=== PATIENT | male | born 1995 | race African-American/Black ===

== ENCOUNTER 2021-12-05 05:39 | Emergency (ER) | payer OTHER ==
[2021-12-05] MEDS ORDERED: ONDANSETRON *ODT* 4 MG TABLET SL ONE (06:07)
[2021-12-05] MEDS ORDERED: ONDANSETRON *ODT* 4 MG TABLET ONE (06:08)
[2021-12-05 06:13] VITALS: BP 105/68; PULSE 95; TEMP 97.7; BMI 31.5
[2021-12-05 07:39] LABS: ALBUMIN 4.2 g/dl (3.4-5.0); CALCIUM 9.3 mg/dL (8.5-10.1)
[2021-12-05 07:42] LABS: CREATININE 0.9 mg/dL (0.55-1.3)
[2021-12-05 07:44] LABS: BILIRUBIN,TOTAL 0.7 mg/dL (0.2-1); TOT PROT 7.1 g/dl (6.4-8.2)
[2021-12-05] MEDS ORDERED: ONDANSETRON 4 MG TABLET PO ONE (08:01)
[2021-12-05] MEDS ORDERED: ONDANSETRON 4 MG/2 ML VIAL ONE (08:22)
[2021-12-05] MEDS ORDERED: SODIUM CHLORIDE 0.9% 500 ML INFUS.BAG IV ONE (08:30)
[2021-12-05 08:45] LABS: HEMATOCRIT 48.6 % (35.4-49); HEMOGLOBIN 15.6 GM/dL (11.7-16.9); MCH 29.6 pg (25.7-33.7); MCHC 32.2 g/dl (32.0-35.9); MEAN CELL VOLUME 92.1 fl (80-96); MEAN PLT VOLUME 8.4 fl (7.5-11.1); PLATELET COUNT 215 10^3/uL (134-434); RBC 5.28 M/mm3 (4.00-5.60); RDW 13.9 % (11.9-15.9); WHITE BLOOD COUNT 8.6 K/mm3 (4.0-10.0)
[2021-12-05] MEDS ORDERED: SODIUM CHLORIDE 1,000 ML IV STA (09:17)
[2021-12-05 12:51] LABS: PLATELET ESTIMATE ADEQUATE
== END 2021-12-05 09:46 | disposition home or self-care (01) ==
LOC: JER 05:39
PROC: 3E0337Z Introduction of Electrolytic and Water Balance Substance into Peripheral Vein, Percutaneous Approach (ICD-10-PCS; principal; 2021-12-05)
DX: R11.2 Nausea with vomiting, unspecified (principal)
CPT/HCPCS: 36415; 80053; 83690; 85025; 99284-25; C9803; Q0162; U0003; U0005

== ENCOUNTER 2021-12-08 06:40 | Emergency (ER) | payer OTHER ==
[2021-12-08 07:32] VITALS: BP 136/84; PULSE 62; TEMP 98.4; BMI 29.7
[2021-12-08] MEDS ORDERED: FAMOTIDINE 20 MG TABLET PO ONE (08:55)
[2021-12-08] MEDS ORDERED: MAG HYDROX/AL HYDROX/SIMETH -MYLANTA- ORAL SUSPENSION PO ONE (08:56)
[2021-12-08] MEDS ORDERED: MAG HYDROX/AL HYDROX/SIMETH 30 ML UNIT-DOSE CUP ONE (09:09)
[2021-12-08] MEDS ORDERED: FAMOTIDINE 20 MG TABLET ONE (09:09)
== END 2021-12-08 10:05 | disposition home or self-care (01) ==
LOC: JER 06:40
DX: R10.13 Epigastric pain (principal); F12.90 Cannabis use, unspecified, uncomplicated
CPT/HCPCS: 99283-25

== ENCOUNTER 2023-03-16 12:37 | Emergency (ER) | payer SELFPAY ==
[2023-03-16 12:40] VITALS: BP 122/65; PULSE 84; RESP 18; TEMP 99.7
== END 2023-03-16 14:06 | disposition home or self-care (01) ==
LOC: JERFT 12:37
DX: J01.10 Acute frontal sinusitis, unspecified (principal); R09.81 Nasal congestion; R09.89 Other specified symptoms and signs involving the circulatory and respiratory systems; H02.849 Edema of unspecified eye, unspecified eyelid; R05.1 Acute cough; H57.89 Other specified disorders of eye and adnexa; Z20.822 Contact with and (suspected) exposure to COVID-19
CPT/HCPCS: 0241U-QW; 99283-25